=== PATIENT | female | born 1970 | race Caucasian/White ===

== ENCOUNTER → 2017-12-22 | Outpatient (CLI) | payer BC ==
--- NOTE | 2017-12-23 07:10 | CT ---
EXAMINATION TYPE: CT abdomen pelvis wo con DATE OF EXAM: 12/22/2017 COMPARISON: None INDICATION: Right sided anterior pelvic pain with blood in urine (moderate-per patient) DLP: 331.5 mGycm, Automated exposure control for dose reduction was used. CONTRAST: None Study performed without Oral Contrast TECHNIQUE: Axial images were obtained from above the diaphragm to the pubic rami in the axial plane a t 5 mm thick sections. Reconstructed images are reviewed on the computer in the coronal plane. FINDINGS: Limited CT sections are obtained the lung bases. The lung bases are clear. CT ABDOMEN: Liver: Normal Spleen: Normal Pancreas: Normal Adrenal glands: The adrenal glands are normal. Gallbladder: Normal Kidneys: No masses are evident. No hydronephrosis is present. No cysts are present. There is ill-d efined areas of increased density within the bilateral kidneys. Findings are likely related to medull ferdinand sponge kidney. Discrete calcifications are not identified. No obstruction is evident. There is some mild right hydroureter. Within the right ureter is a punctate hyperdensity measuring ap proximately 1 mm. Series 3 image 71. Small ureteral stone is not excluded at this level. There is a large calcification at the expected region of the right ureteral vesicle junction measuring 0.4 cm. Aorta: Normal Inferior vena cava: Normal. CT PELVIS: Loops of bowel within the abdomen and pelvis are normal. Study is performed without oral contrast limiting bowel evaluation Appendix: Normal as visualized. Urinary bladder: Normal. Genitourinary structures: Uterus and adnexal regions appear normal. Osseous structures: No suspicious lytic or sclerotic lesions. Sclerotic areas within the right ilium above the right acetabulum. This is a benign appearance with smooth borders. IMPRESSIONS: 1. 0.4 cm calcification at the expected region of the right ureteral vesicle junction. Distal ureter al stone should be considered. 2. Mild right hydroureter. A punctate nonobstructing calcification may be within the mid ureter discu ssed above. 3. Diffuse increased density suspicious for calcification associated with medullary sponge kidney mahad aterally
== END | disposition home or self-care (01) ==
LOC: RADCTMAIN 11:35
PROVIDERS: ATTEND Internal Medicine
DX: N13.4 Hydroureter (principal); N20.1 Calculus of ureter
CPT/HCPCS: 74176

== ENCOUNTER → 2018-04-05 | Outpatient (CLI) | payer BC ==
--- NOTE | 2018-04-05 11:27 | US ---
EXAMINATION TYPE: US kidneys/renal and bladder DATE OF EXAM: 04/05/2018 COMPARISON: CT dated 12/22/2017 CLINICAL HISTORY: N20.1 Calculus of ureter. Followup from CT; patient denies pain EXAM MEASUREMENTS: Right Kidney: 10.9 x 4.1 x 3.6 cm Left Kidney: 10.5 x 6.2 x 5.1 cm Post Void Residual Volume: 17.0 mL Right Kidney: medullary sponge kidney appearance; dilated renal pelvis at 2.3cm largest measure Left Kidney: medullary sponge kidney appearance; hyperechoic, shadowing upper mid pole calculus = 0. 7 x 0.7 x 0.4cm; small calcifications noted mid pole Bladder: wnl Bilateral Jets seen: yes Normal Post Void Residual: yes The urinary bladder is anechoic. Bilateral ureteral jets are seen. IMPRESSION: 1. Redemonstration of a minimally dilated right renal pelvis however right distal ureteral jet is mohan ntified favoring a right extrarenal pelvis or pelviectasis rather than obstruction. CT urogram could assess the ureter. 2. Redemonstration of the appearance of medullary sponge kidney with additional 7 mm nonobstructing l eft renal calculus.
== END | disposition home or self-care (01) ==
LOC: RADUSWWP 09:33
PROVIDERS: ATTEND Urology
DX: N28.89 Other specified disorders of kidney and ureter (principal); N20.0 Calculus of kidney
CPT/HCPCS: 76770

== ENCOUNTER → 2018-06-28 | Outpatient (CLI) | payer BC ==
--- NOTE | 2018-07-06 13:17 | MM ---
Reason for exam: screening (asymptomatic). Last mammogram was performed 2 years and 11 months ago. History: Patient is postmenopausal. Benign excisional biopsy of the right breast, 2002. Physical Findings: A clinical breast exam by your physician is recommended on an annual basis and results should be correlated with mammographic findings. MG 3D Screening Mammo W/Cad Bilateral CC and MLO view(s) were taken. Prior study comparison: July 30, 2015, mammogram, performed at [facility]. September 22, 2012, mammogram, performed at [facility]. The breast tissue is heterogeneously dense. This may lower the sensitivity of mammography. There is no discrete abnormality. No significant changes when compared with prior studies. ASSESSMENT: Benign, BI-RAD 2 RECOMMENDATION: Routine screening mammogram of both breasts in 1 year.
== END ==
LOC: RADMAMWWP 11:27
PROVIDERS: ATTEND Family Medicine
DX: Z12.31 Encounter for screening mammogram for malignant neoplasm of breast (principal)
CPT/HCPCS: 77063; 77067

== ENCOUNTER → 2018-10-25 | Outpatient (CLI) | payer BC ==
--- NOTE | 2018-10-25 10:09 | US ---
EXAMINATION TYPE: US kidneys/renal and bladder DATE OF EXAM: 10/25/2018 COMPARISON: US 04/05/18, CT 12/22/17 CLINICAL HISTORY: N20.1 Calculus of ureter. EXAM MEASUREMENTS: Right Kidney: 11.1 x 4.4 x 3.7 cm Left Kidney: 13.0 x 5.3 x 4.9 cm Post Void Residual Volume: 27.0 mL Right Kidney: Medullary sponge appearance. Dilated renal pelvis = 1.3 cm Left Kidney: Medullary sponge appearance Bladder: wnl Bilateral Jets seen: Yes Normal Post Void Residual: Yes There is no evidence for hydronephrosis at this point in time. No masses are identified. The urinar y bladder is anechoic. Bilateral ureteral jets are seen. IMPRESSION: 1. Again there is appearance of medullary sponge kidney. 2. Minimally dilated right renal pelvis appears chronic, possibly related to an extrarenal pelvis as no kumar hydronephrosis is seen. 3. Renal calculi are difficult to visualize given the presence of medullary sponge kidney. No discret e calculi are identified on today's exam.
--- NOTE | 2018-10-25 10:50 | XR ---
EXAMINATION TYPE: XR KUB DATE OF EXAM: 10/25/2018 CLINICAL DATA: 48-year-old female calculus of ureter, [facility] COMPARISON: Correlation CT 12/22/2017 FINDINGS: Nonobstructive bowel gas pattern. Supine imaging limited for assessment of free air. Scattered mild s tool. No dilated small bowel loops. Radiographic, no definite suspicious calcification is seen. Stabl e bone island within the right iliac bone above the acetabulum. IMPRESSION: No definite suspicious calcification is radiographically apparent. Stable bone island of the right il iac bone.
== END | disposition home or self-care (01) ==
LOC: RADUSWWP 09:27
PROVIDERS: ATTEND Urology
DX: N20.0 Calculus of kidney (principal); N28.89 Other specified disorders of kidney and ureter; Q61.5 Medullary cystic kidney
CPT/HCPCS: 74018; 76770

== ENCOUNTER 2019-03-08 10:04 | Day surgery (SDC) | payer BC ==
[2019-03-07 10:45] VITALS: BMI 26.2
[~2019-03-08 10:04] MED LIST: LACTATED RINGERS 1,000 ML IV SCH; LIDOCAINE 1% 20 ML VIAL (10MG/ML) FOR IV START INTRADERMA PRN
[2019-03-08] MEDS ORDERED: LIDOCAINE 1% 20 ML VIAL (10MG/ML) FOR IV START INTRADERMA ONE (10:50)
[2019-03-08 10:54] VITALS: RESP 16; TEMP 97
[2019-03-08] MEDS ORDERED: PROPOFOL 10 MG/ML 20 ML VIAL IV ONE (11:09)
[2019-03-08] MEDS ORDERED: LIDOCAINE 1% INJ 10MG/ML (20 ML MDV) ONE (11:09)
--- NOTE | 2019-03-08 11:31 | P.PCN ---
Date of Procedure: 03/08/19 Procedure(s) Performed: BRIEF HISTORY: Patient is a 48-year-old pleasant white female scheduled for an elective colonoscopy as a part of screening for colorectal neoplasia. PROCEDURE PERFORMED: Colonoscopy with biopsy. PREOPERATIVE DIAGNOSIS: Screening for colon cancer. IV sedation per Anesthesia. PROCEDURE: After informed consent was obtained, the patient, was brought into the endoscopy unit. IV sedation was administered by Anesthesia under continuous monitoring. Digital rectal examination was normal. Initially the Olympus CF-160 flexible video colonoscope was then inserted in the rectum, gradually advanced into the cecum without any difficulty. Careful examination was performed as the scope was gradually being withdrawn. Ileocecal valve and the appendiceal orifice were visualized and appeared normal. Prep was excellent. Mucosa of the cecum, ascending colon, transverse colon, descending colon, sigmoid colon, and rectum appeared normal. There was a 3 mm distal sigmoid colon Polyp that was removed by cold biopsy. Retroflexion was performed in the rectum and no lesions were seen. The patient tolerated the procedure well. IMPRESSION: 3 mm distal sigmoid colon Polyp status post removal by cold biopsy Rest of the colon appeared normal RECOMMENDATIONS: Findings of this examination were discussed with the patient as well as a family. She was advised to follow with the biopsy results and based the biopsy results and have a repeat screening colonoscopy in 5-10 years.
[2019-03-08 12:01] VITALS: BP 124/79; PULSE 63
== END 2019-03-08 12:18 | disposition home or self-care (01) ==
LOC: ORWHC2ENDO 10:04
PROVIDERS: ATTEND Internal Medicine Gastroenterology
DX: Z12.11 Encounter for screening for malignant neoplasm of colon (principal); K63.5 Polyp of colon; Z79.82 Long term (current) use of aspirin; Z88.5 Allergy status to narcotic agent
CPT/HCPCS: 88305; 45380; J2001; J2704

== ENCOUNTER → 2020-10-11 | Outpatient (CLI) | payer BC ==
--- NOTE | 2020-10-15 09:35 | MM ---
Reason for exam: screening (asymptomatic). Last mammogram was performed 2 years and 3 months ago. History: Patient is postmenopausal. Benign excisional biopsy of the right breast, 2002. Physical Findings: A clinical breast exam by your physician is recommended on an annual basis and results should be correlated with mammographic findings. MG 3D Screening Mammo W/Cad Bilateral CC and MLO view(s) were taken. Prior study comparison: June 28, 2018, bilateral MG 3d screening mammo w/cad. July 30, 2015, mammogram, performed at [facility]. There are scattered fibroglandular densities. ASSESSMENT: Benign, BI-RAD 2 RECOMMENDATION: Routine screening mammogram of both breasts in 1 year.
== END | disposition home or self-care (01) ==
LOC: RADMAMWWP 11:16
PROVIDERS: ATTEND Family Medicine
DX: Z12.31 Encounter for screening mammogram for malignant neoplasm of breast (principal); Z78.0 Asymptomatic menopausal state
CPT/HCPCS: 77063; 77067

== ENCOUNTER → 2022-10-30 | Outpatient (CLI) | payer BC ==
--- NOTE | 2022-11-02 08:59 | MM ---
Reason for Exam: Screening (asymptomatic). Last mammogram was performed 2 year(s) and 1 month(s) ago. Patient History: Menarche at age 14. First Full-Term at age 25. Postmenopausal. 2002, Benign Excisional Biopsy on the right side. Risk Values: Reshma 5 year model risk: 1.3%. NCI Lifetime model risk: 10.3%. Prior Study Comparison: 07/30/2015 Screening Mammogram, [place]. 06/28/2018 Bilateral Screening Mammogram, [facility]. 10/11/2020 Bilateral Screening Mammogram, [facility]. Tissue Density: There are scattered fibroglandular densities. Findings: Analyzed By CAD. There is no suspicious group of microcalcifications or new suspicious mass in either breast. Overall Assessment: Negative, BI-RAD 1 Management: Screening Mammogram of both breasts in [address] [facility] will attempt to contact patient to return for supplemental views and ultrasound if indicated. Patient should continue monthly self-breast exams. A clinical breast exam by your physician is recommended on an annual basis. This exam should not preclude additional follow-up of suspicious palpable abnormalities. Note on Reshma scores and lifetime risk: 1. A Reshma score greater than 3% is considered moderate risk. If this is the case, consider specialist referral to assess eligibility for a risk reducing agent. 2. If overall lifetime risk for the development of breast cancer is 20% or higher, the patient may qualify for future screening with alternating mammogram and breast MRI. Electronically signed and approved by: Bonifacio Brooks DO
== END | disposition home or self-care (01) ==
LOC: RADMAMWWP 08:12
PROVIDERS: ATTEND Family Medicine
DX: Z12.31 Encounter for screening mammogram for malignant neoplasm of breast (principal); Z78.0 Asymptomatic menopausal state
CPT/HCPCS: 77063; 77067

== ENCOUNTER → 2023-03-10 | Outpatient (CLI) | payer BC ==
--- NOTE | 2023-03-10 15:29 | US ---
EXAMINATION TYPE: US thyroid st tissue head/neck DATE OF EXAM: 03/10/2023 COMPARISON: NONE CLINICAL INDICATION: Female, 52 years old with history of E03.9 HYPOTHYROIDISM, UNSPECIFIED; Abnormal labs GLAND SIZE: Right Lobe: 5.5 x 1.7 x 2.1 cm Overall Parenchyma: heterogenous Left Lobe: 3.7 x 1.1 x 1.2 cm Overall Parenchyma: heterogenous Isthmus Thickness: 0.5 cm NODULES RIGHT: # of nodules measured on right: 0 LEFT: # of nodules measured on left: 0 ISTHMUS: # of nodules measured in the isthmus: 0 Stock Control Clerk notes: Bilateral neck scanned, no evidence of lymphadenopathy. Bilateral thyroid heteroge neous, hyperemic, without evidence of nodules. IMPRESSION: Mild thyromegaly with diffusely heterogeneous and hyperemic glandular parenchyma. No discrete nodules . Consider diffuse thyroiditis.
== END | disposition home or self-care (01) ==
LOC: RADUSWWP 14:51
PROVIDERS: ATTEND Family Medicine
DX: E03.9 Hypothyroidism, unspecified (principal)
CPT/HCPCS: 76536

== ENCOUNTER → 2024-10-13 | Outpatient (CLI) | payer OTHER ==
--- NOTE | 2024-10-15 07:25 | BD ---
EXAMINATION TYPE: Axial Bone Density DATE OF EXAM: 10/13/2024 CLINICAL HISTORY: 54 years old Female. ICD-10 CODE: Z78.0 SCREENING FOR OSTEO , Additional History: Height: 64 in Weight: 144 lbs FRAX RISK QUESTIONS: Secondary Osteoporosis: 2. Hyperthyroidism: Lonnie's 3. Menopause before 45: yes age 42 EXAM MEASUREMENTS: Bone mineral densitometry was performed using the [employer] System. Bone mineral density as measured about the Lumbar spine is: ----- L1-L4(G/cm2): 1.037 T Score Values are as follows: ----- L1: -1.9 ----- L2: -1.0 ----- L3: -0.8 ----- L4: -1.4 ----- L1-L4: -1.2 Z Score Values are as follows: ----- L1: -1.2 ----- L2: -0.3 ----- L3: -0.1 ----- L4: -0.6 ----- L1-L4: -0.5 Bone mineral density baseline Bone mineral density about the R hip (g/cm2): 0.841 Bone mineral density about the L hip (g/cm2): 0.884 T Score values are as follows: -----R Neck: -1.8 -----L Neck: -1.9 -----R Total: -1.3 -----L Total: -1.0 Z Score values are as follows: -----R Neck: -0.9 -----L Neck: -0.9 -----R Total: -0.7 -----L Total: -0.4 Bone mineral density baseline FRAX%s: The graph provided illustrates a 7.1% chance for a major osteoporotic fx and a 0.8% chance fo r the hips probability for fx in 10 years time. IMPRESSION: Osteopenia (T Score between -2.5 and -1). There is slightly increased risk of fracture and the patient may be considered for treatment. Re-Screen 2-5 years. NOTE: T-SCORE=SD OF THE YOUNG ADULT MEAN. [facility], , 10/15/2024 7:22 AM
--- NOTE | 2024-10-16 07:52 | MM ---
Reason for Exam: Screening (asymptomatic). Last mammogram was performed 1 year(s) and 11 month(s) ago. Patient History: Menarche at age 14. First Full-Term at age 25. Postmenopausal. Patient has history of breast feeding. 2003, Benign Excisional Biopsy on the right side. Risk Values: Reshma 5 year model risk: 1.4%. NCI Lifetime model risk: 9.9%. Prior Study Comparison: 06/28/2018 Bilateral Screening Mammogram, [facility]. 10/11/2020 Bilateral Screening Mammogram, [facility]. 10/30/2022 Bilateral MG 3D screening mammo w/cad, [facility]. Tissue Density: There are scattered areas of fibroglandular density. Findings: Analyzed By CAD. Chronic nodularity on the left. There is no suspicious group of microcalcifications or new suspicious mass in either breast. Overall Assessment: Benign, BI-RAD 2 Management: Screening Mammogram of both breasts in 1 year. Patient should continue monthly self-breast exams. A clinical breast exam by your physician is recommended on an annual basis. This exam should not preclude additional follow-up of suspicious palpable abnormalities. Note on Reshma scores and lifetime risk: 1. A Reshma score greater than 3% is considered moderate risk. If this is the case, consider specialist referral to assess eligibility for a risk reducing agent. 2. If overall lifetime risk for the development of breast cancer is 20% or higher, the patient may qualify for future screening with alternating mammogram and breast MRI. [facility], , 10/16/2024 7:48 AM. Electronically signed and approved by: Manan Moraes M.D. Radiologist
== END | disposition home or self-care (01) ==
LOC: RADMAMWWP 16:06
PROVIDERS: ATTEND Obstetrics & Gynecology
DX: Z12.31 Encounter for screening mammogram for malignant neoplasm of breast (principal); R92.323 Mammographic fibroglandular density, bilateral breasts; M85.89 Other specified disorders of bone density and structure, multiple sites; Z78.0 Asymptomatic menopausal state
CPT/HCPCS: 77063; 77067; 77080